=== PATIENT | female | born 1995 | race Caucasian/White ===

== ENCOUNTER 2017-12-30 16:30 | Emergency (ER) | payer MEDICAID, OTHER ==
[~2017-12-30] VITALS: Ht 157.5 cm; Wt 57.0 kg
[2017-12-30 16:42] VITALS: BP 121/56; PULSE 77; RESP 16; TEMP 98.5; O2SAT 98
== END 2017-12-30 17:59 | disposition left against medical advice (07) ==
LOC: PHED 16:30
DX: R23.9 Unspecified skin changes (principal); Z53.21 Procedure and treatment not carried out due to patient leaving prior to being seen by health care provider
CPT/HCPCS: 99281

== ENCOUNTER 2018-01-13 16:50 | Emergency (ER) | payer MEDICAID ==
[~2018-01-13] VITALS: Ht 157.5 cm; Wt 57.0 kg
[2018-01-13 16:57] VITALS: BP 126/60; PULSE 91; RESP 17; TEMP 98.4; O2SAT 97
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
[2018-01-13] MEDS ORDERED: ONDANSETRON ODT 4 MG TAB PO ONE (17:45)
[2018-01-13] MEDS ORDERED: ACETAMINOPHEN 325 MG TAB PO ONE (17:45)
[2018-01-13 18:12] VITALS: BP 99/47; PULSE 79; RESP 16; O2SAT 100
[2018-01-13] MEDS ORDERED: TYLE325T PO (18:26)
[2018-01-13 18:31] VITALS: BP 104/47; PULSE 80; RESP 16; O2SAT 100
== END 2018-01-13 18:37 | disposition home or self-care (01) ==
LOC: PHED 16:50
DX: S09.90XA Unspecified injury of head, initial encounter (principal); V86.69XA Passenger of other special all-terrain or other off-road motor vehicle injured in nontraffic accident, initial encounter
CPT/HCPCS: 99283

== ENCOUNTER 2018-03-05 22:04 | Emergency (ER) | payer MEDICAID ==
[~2018-03-05] VITALS: Ht 157.5 cm; Wt 57.6 kg
[~2018-03-05 22:04] MED LIST: TYLE325T PO
[2018-03-05 22:07] VITALS: BP 111/57; PULSE 65; RESP 18; TEMP 98.2; O2SAT 99
--- NOTE | 2018-03-05 22:51 | PD ---
HPI Chief Complaint: Abdominal Pain Time Seen by Provider: 22:25 Travel History International Travel<30 days: No Contact w/Intl Traveler<30days: No Traveled to known affect area: No History of Present Illness HPI This is a 22-year-old female who presents today with complaints of lower pelvic pain and vaginal discharge. Patient states that she has noticed it for about a month now. She states that it has not gone away. She reports that the discharge is thick and white. She denies any odor to it. She states is thicker than normal. She is sexually active. She does not use protection. She states that she has 2 sexual partners that she is with. She is not on control pills. She denies any dysuria, urgency, frequency. There are no other complaints at time of my examination. PFSH Past Medical History ?: Not LMP: 3 WEEKS AGO Social History Alcohol Use: Yes Tobacco Use: Yes Substance Use: Yes Allergies-Medications (Allergen,Severity, Reaction): Coded Allergies: No Known Allergies (Unverified Adverse Reaction, Unknown, 03/05/18) Reported Meds & Prescriptions Reported Meds & Active Scripts Active Tylenol (Acetaminophen) 325 Mg Tab 650 Mg PO Q6H PRN Review of Systems Except as stated in HPI: all other systems reviewed are Neg General / Constitutional: No: Fever, Chills HENT: No: Headaches, Neck Pain Cardiovascular: No: Chest Pain or Discomfort, Palpitations Gastrointestinal: Positive: Abdominal Pain (Lower pelvic), No: Nausea, Vomiting Genitourinary: Positive: Pelvic Pain, Discharge (White thick), No: Frequency, Dysuria Musculoskeletal: No: Weakness, Pain Skin: No Rash, No Lesions Physical Exam Narrative GENERAL: Well-nourished, well-developed patient, in no acute respiratory distress. SKIN: Focused skin assessment warm/dry. HEAD: Normocephalic/atraumatic. EYES: No scleral icterus. No injection or drainage. NECK: Supple, trachea midline. No JVD or lymphadenopathy. GASTROINTESTINAL: Abdomen soft, non-tender, nondistended. GENITOURINARY: Performed with nurse Viveros. Normal external genitalia without lesions or erythema. Vaginal vault without blood. Thick white discharge noted in the vaginal vault. Cervical os was closed without drainage. Minimal cervical discomfort. Right adnexal discomfort to deep palpation. No masses appreciated. Left adnexa without discomfort. MUSCULOSKELETAL: No cyanosis, or edema. NEUROLOGICAL: Awake and alert. Cranial nerves II through XII intact. Motor grossly within normal limits. Five out of 5 muscle strength in all muscle groups. Normal speech. Data Data Last Documented VS Vital Signs Date Time Temp Pulse Resp B/P (MAP) Pulse Ox O2 Delivery O2 Flow Rate FiO2 03/05/18 22:15 16 03/05/18 22:07 98.2 65 111/57 (75) 99 Orders Orders Urinalysis - C+S If Indicated (03/05/18 22:25) Wet Prep Profile (03/05/18 22:25) Gc And Chlamydia Pcr (03/05/18 22:25) Ed Urine Pregnancytest Poc (03/05/18 22:25) Azithromycin Powd Pack (Zithromax Powd P (03/05/18 23:00) Ceftriaxone Inj (Rocephin Inj) (03/05/18 23:00) Lidocaine Pf 1% Inj (Xylocaine-Mpf 1% In (03/05/18 23:15) Labs Laboratory Tests Test 03/05/18 22:30 Urine Color YELLOW Urine Turbidity CLEAR Urine pH 7.0 Urine Specific [place] 1.015 Urine Protein NEG mg/dL Urine Glucose (UA) NEG mg/dL Urine Ketones NEG mg/dL Urine Occult Blood NEG Urine Nitrite NEG Urine Bilirubin NEG Urine Urobilinogen 0.2 MG/DL Urine Leukocyte Esterase NEG Urine RBC 0-3 /hpf Urine WBC 0-2 /hpf Urine Squamous Epithelial Cells 0-5 /hpf Microscopic Urinalysis Comment CULT NOT INDICATED Clue Cells (Wet Prep) NONE SEEN Vaginal Trichomonas (Wet Prep) NONE SEEN Vaginal Yeast (Wet Prep) NONE SEEN MDM Medical Decision Making Medical Screen Exam Complete: Yes Emergency Medical Condition: Yes Differential Diagnosis Ectopic versus PID versus ovarian cyst Narrative Course 22-year-old female presents with vaginal discharge and pelvic pain. Patient has mild cervical motion tenderness and right adnexal discomfort. There is no masses appreciated. She is not . Urinalysis shows no evidence of acute infection. Wet prep is negative for infection. GC and chlamydia are pending at this time. Patient's been medicated with Rocephin and Zithromax. I have informed her we will call her if there is any positive results. The patient currently is not receiving any gynecological care. She states that she does not have insurance. I will refer her out to the [facility]. They can follow her for her [employer] needs. She is instructed to return if anything gets worse. Diagnosis Primary Impression: Pelvic pain Additional Impression: Vaginal discharge Referrals: [facility] Dept. Additional Instructions: Practice safe sex. Follow-up with [facility] for control needs and female health. Disposition: 01 DISCHARGE HOME Condition: Stable José Miguel Peñaloza MD March 05, 2018 22:50
[2018-03-05 22:58] LABS: BILIRUBIN, URINE NEG (NEG); BLOOD, URINE NEG (NEG); GLUCOSE,URINE NEG (NEG); KETONE, URINE NEG (NEG); NITRITE,URINE NEG (NEG); URINE COLOR YELLOW (YELLW/STRAW); URINE LEUKOCYTE ESTERASE NEG (NEG)
[2018-03-05] MEDS ORDERED: cefTRIAXone 250 MG VIAL IM ONE (23:00)
[2018-03-05] MEDS ORDERED: AZITHROMYCIN PWD FOR SUSP 1 GM PACKET PO ONE (23:00)
[2018-03-05] MEDS ORDERED: LIDOCAINE HCL 1% 50 ML VIAL IM ONE (23:00)
[2018-03-05 23:07] LABS: RBC, URINE 0-3 /hpf (0-3); SQUAMOUS EPITHELIAL CELL URINE 0-5 /hpf (0-5); WBC, URINE 0-2 /hpf (0-5)
[2018-03-05] MEDS ORDERED: LIDOCAINE HCL 1% PF 2 ML VIAL OTHER ONE (23:15)
== END 2018-03-06 00:13 | disposition home or self-care (01) ==
LOC: PHED 22:04
DX: R10.2 Pelvic and perineal pain (principal); N89.8 Other specified noninflammatory disorders of vagina; Z72.0 Tobacco use
CPT/HCPCS: 81001; 84703; 87210; 87491; 87591; 96372; 99283; J0696